=== PATIENT | male | born 2000 | race Caucasian/White ===

== ENCOUNTER 2018-11-24 00:28 | Emergency (ER) | payer SELFPAY ==
[~2018-11-24] VITALS: Ht 177.8 cm; Wt 86.2 kg
--- OUTSIDE RECORDS SUMMARY | 2018-11-24 00:31 | XMS REPORT | Clinical Summary ---
Author Author [facility] Address Unknown Phone Unavailable Care Team Providers Care Derrickman Helper Name Role Phone Sharpless PCP Allergies No Known Allergies Medications No known medications Active Problems Not on file Social History Date Tobacco Use Types Packs/Day Years Used Never Smoker Alcohol Use Drinks/Week oz/Week Comments No Sex Assigned at Date Recorded Not on file Industry Job Start Date Occupation Not on file Not on file Not on file Travel End Travel History Travel Start No recent travel history available. Last Filed Vital Signs Not on file Plan of Treatment Not on file Results Not on fileafter 11/23/2017
--- OUTSIDE RECORDS SUMMARY | 2018-11-24 00:31 | XMS REPORT ---
Author Author [facility] Address Unknown Phone Unavailable Care Team Providers Care Mountain Guide Name Role Phone Unavailable Unavailable Payers Payer Name Policy Type Policy Number Effective Date Expiration Date Problems This patient has no known problems. Allergies, Adverse Reactions, Alerts Allergy Name Allergy Type Status Severity Reaction(s) Onset Date Inactive Date Treating Clinician Comments No Known Allergies DA Active U 2012-04-16 00:00:00 Medications This patient has no known medications.
[2018-11-24] MEDS ORDERED: IBUPROFEN 600 MG TAB PO STA (00:59)
[2018-11-24] MEDS ORDERED: CEFAZOLIN SOD 500 MG VIAL IM ONE (01:00)
--- NOTE | 2018-11-24 01:00 | NUR ---
WOUND CULTURE OBTAINED
[2018-11-24] MEDS ORDERED: CLINDAMYCIN HC150 MG PO ×2 (01:05→01:09)
[2018-11-24] MEDS ORDERED: KEFLEX500 MG PO (01:05)
== END 2018-11-24 01:21 | disposition home or self-care (01) ==
LOC: FSED 00:28
DX: L02.211 Cutaneous abscess of abdominal wall (principal); I10 Essential (primary) hypertension; J45.909 Unspecified asthma, uncomplicated
CPT/HCPCS: 87071; 87205; 99282